=== PATIENT | female | born 1940 | race Caucasian/White ===

== ENCOUNTER 2021-05-20 13:02 | Emergency (ER) | payer SELFPAY ==
[2021-05-20 13:48] VITALS: RESP 18
[2021-05-20 15:01] LABS: Appearance,Urine Clear (Clear); Bilirubin,Urine Negative (Negative); Blood,Urine Negative (Negative); Color,Urine Yellow; Glucose,Urine (UA) Negative (Negative); Ketones,Urine Negative (Negative); Leukocyte Esterase,Urine Moderate (Negative); Mucus,Urine Occasional /hpf; Nitrite,Urine Negative (Negative); PH, Urine 5.5 (5.0-8.0); Protein,Urine Negative (Negative); RBC,Urine 3 /hpf (0-5); Specific Gravity,Urine 1.022 (1.001-1.035); Squamous Epithelial Cell,Urine 1 /hpf (0-4); Urobilinogen,Urine <2.0 mg/dL (<2.0); WBC,Urine 6 /hpf (0-5)
[2021-05-20] MEDS ORDERED: cefTRIAXone IN SWFI 1,000 MG/10 ML SYRINGE IVP STA (15:02)
--- NOTE | 2021-05-20 15:06 | ED ---
Female Urogenital HPI - General Source: patient, RN notes reviewed Mode of arrival: ambulatory Limitations: no limitations <Ranulfo Nguyen - Last Filed: 05/20/21 15:21> <Sangeeta Chatterjee - Last Filed: 05/23/21 23:03> - General Chief complaint: Urogenital Stated complaint: UTI for 2 weeks, rt ankle swelling Time Seen by Provider: 05/20/21 14:10 - History of Present Illness Initial comments: Patient is a 80-year-old female that presents to the emergency department complaining of an ongoing urinary tract infection. She noted been on several antibiotics and still seems to be having symptoms. She notes discomfort. She notes that she recently finished Keflex. Patient denied any other issues or complaints except for right ankle pain. She notes she stepped on a pallet and steps due to of the slats. She denied chest pain shortness of breath headache nausea vomiting diarrhea constipation fever fatigue chills. (Ranulfo Nguyen) - Related Data Previous Rx's Medication Instructions Recorded Ciprofloxacin HCl [Cipro] 500 mg PO Q12HR #14 tablet 05/20/21 Allergies Allergy/AdvReac Type Severity Reaction Status Date / Time egg Allergy Unknown Verified 05/20/21 14:57 nickel Allergy Unknown Verified 05/20/21 14:57 nitrofurantoin Allergy Unknown Verified 05/20/21 14:57 [From Macrobid] Penicillins Allergy Swelling Verified 05/20/21 13:49 Sulfa (Sulfonamide Allergy Unknown Verified 05/20/21 14:57 Antibiotics) sulfamethoxazole Allergy Unknown Verified 05/20/21 13:49 [From Bactrim] trimethoprim [From Bactrim] Allergy Unknown Verified 05/20/21 13:49 Review of Systems ROS Other: All systems not noted in ROS Statement are negative. <Ranulfo Nguyen - Last Filed: 05/20/21 15:21> ROS Other: All systems not noted in ROS Statement are negative. <Sangeeta Chatterjee - Last Filed: 05/23/21 23:03> ROS Statement: Those systems with pertinent positive or pertinent negative responses have been documented in the HPI. Past Medical History Past Medical History: GERD/Reflux, Hypertension, Thyroid Disorder History of Any Multi-Drug Resistant Organisms: None Reported Past Surgical History: Back Surgery, Orthopedic Surgery Past Psychological History: No Psychological Hx Reported Smoking Status: Never smoker Past Alcohol Use History: None Reported Past Drug Use History: None Reported <Ranulfo Nguyen - Last Filed: 05/20/21 15:21> General Exam Limitations: no limitations General appearance: alert, in no apparent distress, obese Head exam: Present: atraumatic, normocephalic, normal inspection Eye exam: Present: normal appearance, PERRL, EOMI. Absent: scleral icterus, conjunctival injection, periorbital swelling ENT exam: Present: normal exam, mucous membranes moist Neck exam: Present: normal inspection Respiratory exam: Present: normal lung sounds bilaterally. Absent: respiratory distress, wheezes, rales, rhonchi, stridor Cardiovascular Exam: Present: regular rate, normal rhythm, normal heart sounds. Absent: systolic murmur, diastolic murmur, rubs, gallop, clicks GI/Abdominal exam: Present: soft, tenderness (mild in the lower Abdomen.), normal bowel sounds. Absent: distended, guarding, rebound, rigid Extremities exam: Present: normal inspection, full ROM, normal capillary refill. Absent: tenderness, pedal edema, joint swelling, calf tenderness Neurological exam: Present: alert, oriented X3 Psychiatric exam: Present: normal affect, normal mood Skin exam: Present: warm, dry, intact, normal color. Absent: rash <Ranulfo Nguyen - Last Filed: 05/20/21 15:21> Course Vital Signs 05/20/21 05/20/21 13:41 16:14 Temperature 98.4 F 98.1 F Pulse Rate 86 76 Respiratory 18 18 Rate Blood Pressure 152/82 150/72 O2 Sat by Pulse 96 97 Oximetry Medical Decision Making - Radiology Data Radiology results: report reviewed, image reviewed <Ranulfo Nguyen - Last Filed: 05/20/21 15:21> <Sangeeta Chatterjee - Last Filed: 05/23/21 23:03> - Medical Decision Making 80-year-old female with urinary tract symptoms and right ankle pain. Urinalysis and x-ray the right ankle ordered. Urinalysis shows 6 white blood cells, 1 g Rocephin ordered. Antibiotics sent to pharmacy. X-ray imaging negative for any acute fracture. Patient is febrile discharge home. Case discussed with Dr. Chatterjee. (Ranulfo Nguyen) I was available for consultation in the emergency department. The history and physical exam were done by the midlevel provider. I was consulted for this patients care. I reviewed the case with the midlevel provider and based on their presentation of the patient, I agree with the assessment, medical decision making and plan of care as documented. Chart was dictated using [employer] dictation software. Attempts were made to correct any dictation errors however some typographical errors may persist. Patient was seen during a national state of emergency due to the Covid-19 pandemic. (Sangeeta Chatterjee) - Lab Data Lab Results 05/20/21 Range/Units 14:21 Urine Color Yellow Urine Appearance Clear (Clear) Urine pH 5.5 (5.0-8.0) Ur Specific [place] 1.022 (1.001-1.035) Urine Protein Negative (Negative) Urine Glucose (UA) Negative (Negative) Urine Ketones Negative (Negative) Urine Blood Negative (Negative) Urine Nitrite Negative (Negative) Urine Bilirubin Negative (Negative) Urine Urobilinogen <2.0 (<2.0) mg/dL Ur Leukocyte Esterase Moderate H (Negative) Urine RBC 3 (0-5) /hpf Urine WBC 6 H (0-5) /hpf Ur Squamous Epith Cells 1 (0-4) /hpf Urine Mucus Occasional H (None) /hpf - Radiology Data X-ray right ankle is negative for any acute fractures or dislocations. (Ranulfo Nguyen) Disposition Is patient prescribed a controlled substance at d/c from ED?: No Time of Disposition: 15:24 <Ranulfo Nguyen - Last Filed: 05/20/21 15:21> <Sangeeta Chatterjee - Last Filed: 05/23/21 23:03> Clinical Impression: Urinary tract infection Disposition: HOME SELF-CARE Condition: Stable Instructions (If sedation given, give patient instructions): Urinary Tract Infe ction in Women (ED) Additional Instructions: Please return to the Emergency Department if symptoms worsen or any other concerns. Take antibiotic as prescribed Follow-up with primary care in 1-2 days. Follow-up with urologist as needed. Prescriptions: Ciprofloxacin HCl [Cipro] 500 mg PO Q12HR #14 tablet Referrals: Nonstaff,Physician [Primary Care Provider] - 1-2 days Brandan Crandall MD [STAFF PHYSICIAN] - 1-2 days
--- NOTE | 2021-05-20 15:09 | XR ---
EXAMINATION TYPE: XR ankle complete RT DATE OF EXAM: 05/20/2021 COMPARISON: NONE HISTORY: Ankle pain TECHNIQUE: 3 views FINDINGS: Ankle mortise is anatomic. I see no fracture nor dislocation. There is previous surgery at the distal first metatarsal. IMPRESSION: Negative right ankle exam. No fracture seen.
[2021-05-20] MEDS ORDERED: cefTRIAXone 1,000 MG VIAL (IM USE) IM STA (15:40)
[2021-05-20 16:14] VITALS: BP 150/72; PULSE 76; TEMP 98.1
== END 2021-05-20 16:14 | disposition home or self-care (01) ==
LOC: EC 13:02
DX: N39.0 Urinary tract infection, site not specified (principal); K21.9 Gastro-esophageal reflux disease without esophagitis; I10 Essential (primary) hypertension; E07.9 Disorder of thyroid, unspecified; Z88.0 Allergy status to penicillin; Z88.2 Allergy status to sulfonamides; Z88.1 Allergy status to other antibiotic agents
CPT/HCPCS: 99283; 96372; 81001; 73610; J0696

== ENCOUNTER 2023-09-12 15:34 | Emergency (ER) | payer MEDICARE ==
--- NOTE | 2023-09-12 15:54 | ED ---
Syncope HPI - General Stated Complaint: Syncope Time Seen by Provider: 09/12/23 15:49 Source: RN notes reviewed, old records reviewed Mode of arrival: EMS Limitations: no limitations - History of Present Illness Initial Comments: This is a 82-year-old female to the ER for evaluation today. Patient comes in for evaluation of a syncopal event. Patient was at her primary care's for normal office visit today when she passed out. Patient passed out while getting her ears flushed. She is without complaint here in the ER no headache chest pain shortness of breath abdominal pain no prior history of syncope. MD Complaint: loss of consciousness, collapsed -: minutes(s) Prodromal Symptoms: lightheaded -: second(s) Witnessed: yes - by bystander Injuries Sustained Associated with Event: None Current Symptoms: none, back to baseline History: previous syncopal episode Context: at rest (Patient was currently getting her ears flushed) Treatments Prior to Arrival: none - Related Data Home Medications Medication Instructions Recorded Confirmed Clotrimazole/Betameth Cream 1 applic TOPICAL BID PRN 09/12/23 09/12/23 [Lotrisone] Levothyroxine Sodium [Synthroid] 50 mcg PO DAILY 09/12/23 09/12/23 Levothyroxine Sodium [Synthroid] 75 mcg PO MOWEFR 09/12/23 09/12/23 Losartan Potassium [Cozaar] 100 mg PO DAILY 09/12/23 09/12/23 Omeprazole [PriLOSEC] 20 mg PO BID 09/12/23 09/12/23 Rosuvastatin [Crestor] 10 mg PO DAILY@1700 09/12/23 09/12/23 Triamcinolone 0.025% Cream 1 applic TOPICAL BID PRN 09/12/23 09/12/23 [Kenalog 0.025% Cream] amLODIPine [Norvasc] 5 mg PO HS 09/12/23 09/12/23 hydroCHLOROthiazide [Hydrodiuril] 12.5 mg PO DAILY 09/12/23 09/12/23 valACYclovir HCL [Valtrex] 500 mg PO DAILY 09/12/23 09/12/23 Allergies Allergy/AdvReac Type Severity Reaction Status Date / Time egg Allergy Unknown Verified 09/12/23 17:17 nickel Allergy Unknown Verified 09/12/23 17:17 nitrofurantoin Allergy Unknown Verified 09/12/23 17:17 [From Macrobid] Penicillins Allergy Swelling Verified 09/12/23 17:17 Sulfa (Sulfonamide Allergy Swelling Verified 09/12/23 17:17 Antibiotics) sulfamethoxazole Allergy Swelling Verified 09/12/23 17:17 [From Bactrim] trimethoprim [From Bactrim] Allergy Swelling Verified 09/12/23 17:17 Review of Systems ROS Statement: Those systems with pertinent positive or pertinent negative responses have been documented in the HPI. ROS Other: All systems not noted in ROS Statement are negative. Past Medical History Past Medical History: GERD/Reflux, Hypertension, Thyroid Disorder History of Any Multi-Drug Resistant Organisms: None Reported Past Surgical History: Back Surgery, Orthopedic Surgery Past Psychological History: No Psychological Hx Reported Smoking Status: Never smoker Past Alcohol Use History: None Reported Past Drug Use History: None Reported General Exam General appearance: alert, anxious, in distress Head exam: Present: atraumatic, normocephalic, normal inspection Eye exam: Present: normal appearance, PERRL, EOMI. Absent: scleral icterus, conjunctival injection, periorbital swelling ENT exam: Present: normal exam, mucous membranes moist Neck exam: Present: normal inspection. Absent: tenderness, meningismus, lymphadenopathy Respiratory exam: Present: normal lung sounds bilaterally. Absent: respiratory distress, wheezes, rales, rhonchi, stridor Cardiovascular Exam: Present: regular rate, normal rhythm, normal heart sounds. Absent: systolic murmur, diastolic murmur, rubs, gallop, clicks GI/Abdominal exam: Present: soft, normal bowel sounds. Absent: distended, tenderness, guarding, rebound, rigid Extremities exam: Present: normal inspection, full ROM, normal capillary refill. Absent: tenderness, pedal edema, joint swelling, calf tenderness Back exam: Present: normal inspection Neurological exam: Present: alert, oriented X3, CN II-XII intact Psychiatric exam: Present: normal affect, normal mood Skin exam: Present: warm, dry, intact, normal color. Absent: rash Course Vital Signs 09/12/23 09/12/23 15:48 18:26 Temperature 98.6 F 98.6 F Pulse Rate 62 71 Respiratory 16 16 Rate Blood Pressure 149/63 151/66 O2 Sat by Pulse 97 96 Oximetry - Reevaluation(s) Reevaluation #1: 09/12/23 18:09 Medical records reviewed Reevaluation #2: 09/12/23 18:09 Patient remains asymptomatic here in the ER Reevaluation #3: 09/12/23 18:09 Patient informed of results questions answered Reevaluation #4: Was pt. sent in by a medical professional or institution (DONG Christopher, ORNAMENT SETTER, urgent care, hospital, or prison...) When possible be specific @ -no Did you speak to anyone other than the patient for history (EMS, parent, family, police, friend...)? What history was obtained from this source @ -no Did you review nursing and triage notes (agree or disagree)? Why? @ -agree Are old charts reviewed (outside hosp., previous admission, EMS record, old EKG, old radiological studies, urgent care reports/EKG's, prison records)? Report findings @ -yes Differential Diagnosis (chest pain, altered mental status, abdominal pain women, abdominal pain men, vaginal bleeding, weakness, fever, dyspnea, syncope, headache, dizziness, GI bleed, back pain, seizure, CVA, palpatations, mental health, musculoskeletal)? @ -prior EKG interpreted by me (3pts min.). @ -yes X-rays interpreted by me (1pt min.). @ -no CT interpreted by me (1pt min.). @ -Yes negative for acute disease U/S interpreted by me (1pt. min.). @ -no What testing was considered but not performed or refused? (CT, X-rays, U/S, labs)? Why? @ -none What meds were considered but not given or refused? Why? @ -none Did you discuss the management of the patient with other professionals ([facility] seo i.e. DONG Christopher, ORNAMENT SETTER, lab, RT, psych nurse, home health care social worker, sander wooden pencils, teacher, president and chief executive officer, immigration case manager)? Give summary @ -no Was smoking cessation discussed for >3mins.? @ -no Was critical care preformed (if so, how long)? @ -no Were there social determinants of health that impacted care today? How? (Homelessness, low income, unemployed, alcoholism, drug addiction, transportation, low edu. Level, literacy, decrease access to med. care, alf, rehab)? @ -none Was there de-escalation of care discussed even if they declined (Discuss DNR or withdrawal of care, Hospice)? DNR status @ -no What co-morbidities impacted this encounter? (DM, HTN, Smoking, COPD, CAD, Cancer, CVA, ARF, Chemo, Hep., AIDS, mental health diagnosis, sleep apnea, morbid obesity)? @ -none Was patient admitted / discharged? Hospital course, mention meds given and route, prescriptions, significant lab abnormalities, going to OR and other pertinent info. @ - 82 female to ER for evaluation patient presents today for evaluation of syncopal event. Patient has no recurrent syncope here in the ER but feels well no complaints and can be discharged home Discharge Undiagnosed new problem with uncertain prognosis? @ -no Drug Therapy requiring intensive monitoring for toxicity (Heparin, Nitro, Insulin, Cardizem)? @ -no Were any procedures done? @ -no Diagnosis/symptom? @ -Syncope Acute, or Chronic, or Acute on Chronic? @ -Acute Uncomplicated (without systemic symptoms) or Complicated (systemic symptoms)? @ -Complicated Side effects of treatment? @ -no Exacerbation, Progression, or Severe Exacerbation? @ -exacerbation Poses a threat to life or bodily function? How? (Chest pain, [place], AK, pneumonia, PE, COPD, DKA, ARF, appy, cholecystitis, CVA, Diverticulitis, Homicidal, Suicidal, threat to staff... and all critical care pts) @ -yes with significant syncopal event Reevaluation #5: Differential Syncope: Valvular disease, hypertrophic cardiomyopathy, pulmonary embolism, tamponade, tachycardia, bradycardia, [place], hypovolemia, hemorrhage, dissection, anemia, intracranial hemorrhage, seizure, hypoglycemia, carbon monoxide poisoning, this is not meant to be an all-inclusive list. EKG Findings - EKG Comments: EKG Findings:: EKG is sinus 66 NE 154 QRS 86 QTc 422 - EKG Results: EKG: interpreted by ERMD Medical Decision Making - Medical Decision Making 82 female to ER for evaluation patient presents today for evaluation of syncopal event. Patient has no recurrent syncope here in the ER but feels well no comp laints and can be discharged home - Lab Data Result diagrams: 09/12/23 15:59 09/12/23 15:59 Lab Results 09/12/23 09/12/23 09/12/23 Range/Units 15:59 15:59 15:59 WBC 3.9 (3.8-10.6) k/uL RBC 4.24 (3.80-5.40) m/uL Hgb 11.4 (11.4-16.0) gm/dL Hct 38.0 (34.0-46.0) % MCV 89.5 (80.0-100.0) fL MCH 27.0 (25.0-35.0) pg MCHC 30.1 L (31.0-37.0) g/dL RDW 15.4 (11.5-15.5) % Plt Count 232 (150-450) k/uL MPV 8.0 Neutrophils % 52 % Lymphocytes % 33 % Monocytes % 9 % Eosinophils % 2 % Basophils % 1 % Neutrophils # 2.0 (1.3-7.7) k/uL Lymphocytes # 1.3 (1.0-4.8) k/uL Monocytes # 0.3 (0-1.0) k/uL Eosinophils # 0.1 (0-0.7) k/uL Basophils # 0.1 (0-0.2) k/uL Hypochromasia Slight PT 10.8 (10.0-12.5) sec INR 1.0 (<1.2) APTT 20.7 L (22.0-30.0) sec D-Dimer 0.98 H (<0.60) mg/L FEU Sodium 139 (137-145) mmol/L Potassium 4.0 (3.5-5.1) mmol/L Chloride 106 (98-107) mmol/L Carbon Dioxide 23 (22-30) mmol/L Anion Gap 10 mmol/L BUN 14 (7-17) mg/dL Creatinine 0.80 (0.52-1.04) mg/dL Est GFR (CKD-EPI)AfAm 81 (>60 ml/min/1.73 sqM) Est GFR (CKD-EPI)NonAf 70 (>60 ml/min/1.73 sqM) Glucose 100 H (74-99) mg/dL Plasma Lactic Acid Boris (0.7-2.0) mmol/L Calcium 9.0 (8.4-10.2) mg/dL Phosphorus 3.4 (2.5-4.5) mg/dL Magnesium 1.6 (1.6-2.3) mg/dL Total Bilirubin 0.5 (0.2-1.3) mg/dL AST 31 (14-36) U/L ALT 17 (4-34) U/L Alkaline Phosphatase 88 (38-126) U/L Troponin I (0.000-0.034) ng/mL NT-Pro-B Natriuret Pep 561 pg/mL Total Protein 6.8 (6.3-8.2) g/dL Albumin 3.6 (3.5-5.0) g/dL 09/12/23 09/12/23 Range/Units 15:59 15:59 WBC (3.8-10.6) k/uL RBC (3.80-5.40) m/uL Hgb (11.4-16.0) gm/dL Hct (34.0-46.0) % MCV (80.0-100.0) fL MCH (25.0-35.0) pg MCHC (31.0-37.0) g/dL RDW (11.5-15.5) % Plt Count (150-450) k/uL MPV Neutrophils % % Lymphocytes % % Monocytes % % Eosinophils % % Basophils % % Neutrophils # (1.3-7.7) k/uL Lymphocytes # (1.0-4.8) k/uL Monocytes # (0-1.0) k/uL Eosinophils # (0-0.7) k/uL Basophils # (0-0.2) k/uL Hypochromasia PT (10.0-12.5) sec INR (<1.2) APTT (22.0-30.0) sec D-Dimer (<0.60) mg/L FEU Sodium (137-145) mmol/L Potassium (3.5-5.1) mmol/L Chloride (98-107) mmol/L Carbon Dioxide (22-30) mmol/L Anion Gap mmol/L BUN (7-17) mg/dL Creatinine (0.52-1.04) mg/dL Est GFR (CKD-EPI)AfAm (>60 ml/min/1.73 sqM) Est GFR (CKD-EPI)NonAf (>60 ml/min/1.73 sqM) Glucose (74-99) mg/dL Plasma Lactic Acid Boris 1.1 (0.7-2.0) mmol/L Calcium (8.4-10.2) mg/dL Phosphorus (2.5-4.5) mg/dL Magnesium (1.6-2.3) mg/dL Total Bilirubin (0.2-1.3) mg/dL AST (14-36) U/L ALT (4-34) U/L Alkaline Phosphatase (38-126) U/L Troponin I <0.012 (0.000-0.034) ng/mL NT-Pro-B Natriuret Pep pg/mL Total Protein (6.3-8.2) g/dL Albumin (3.5-5.0) g/dL - EKG Data -: EKG Interpreted by Me - Radiology Data Radiology results: report reviewed (CTA chest negative for PE), image reviewed Disposition Clinical Impression: Syncope due to orthostatic hypotension, Vasovagal syncope, Dehydration Disposition: HOME SELF-CARE Condition: Fair Instructions (If sedation given, give patient instructions): Syncope (ED) Is patient prescribed a controlled substance at d/c from ED?: No Referrals: sAhvin Malloy DO [Primary Care Provider] - 1-2 days
[2023-09-12] MEDS: SODIUM CHLORIDE 0.9% 1,000 ML IV STA (16:03)
[2023-09-12 16:13] VITALS: RESP 16; TEMP 98.6
[2023-09-12 16:13] LABS: Basophils # (A) 0.1 k/uL (0-0.2); Basophils % (A) 1 %; Eosinophils # (A) 0.1 k/uL (0-0.7); Eosinophils % (A) 2 %; HGB 11.4 gm/dL (11.4-16.0); Hypochromasia Slight; Lymphocytes # (A) 1.3 k/uL (1.0-4.8); Lymphocytes % (A) 33 %; MCHC 30.1 g/dL (31.0-37.0); MCV 89.5 fL (80.0-100.0); Monocytes # (A) 0.3 k/uL (0-1.0); Monocytes % (A) 9 %; Neutrophils % (A) 52 %; Platelet Count 232 k/uL (150-450); RBC 4.24 m/uL (3.80-5.40); RDW 15.4 % (11.5-15.5); WBC 3.9 k/uL (3.8-10.6)
[2023-09-12 16:27] LABS: ALT 17 U/L (4-34); AST 31 U/L (14-36); African American GFR (CKD) 81 (>60 ml/min/1.73 sqM); Albumin 3.6 g/dL (3.5-5.0); Alkaline Phosphatase 88 U/L (38-126); Anion Gap 10 mmol/L; Blood Urea Nitrogen 14 mg/dL (7-17); Carbon Dioxide 23 mmol/L (22-30); Chloride 106 mmol/L (98-107); Glucose 100 mg/dL (74-99); Magnesium 1.6 mg/dL (1.6-2.3); Non-African American GFR(CKD) 70 (>60 ml/min/1.73 sqM); Phosphorus 3.4 mg/dL (2.5-4.5); Sodium 139 mmol/L (137-145); Total Bilirubin 0.5 mg/dL (0.2-1.3); Total Protein 6.8 g/dL (6.3-8.2)
[2023-09-12 16:35] LABS: NT-Pro-B-Type Natriuretic Pept 561 pg/mL
[2023-09-12 16:38] LABS: Prothrombin Time 10.8 sec (10.0-12.5)
[2023-09-12 16:49] LABS: Partial Thromboplastin Time 20.7 sec (22.0-30.0)
--- NOTE | 2023-09-12 17:39 | CT ---
EXAMINATION TYPE: CT angio chest DATE OF EXAM: 09/12/2023 5:28 PM COMPARISON: None HISTORY: syncope, vertigo, elevated d-dimer CT DLP: 361.7 mGycm Automated exposure control for dose reduction was used. CONTRAST: CTA scan of the thorax is performed with IV Contrast, patient injected with 100ml mL of Isovue 370, p ulmonary embolism protocol. 3-D postprocessing was performed.. FINDINGS: LUNGS: The lungs are grossly clear, there is no concerning parenchymal mass or nodule identified. T here is no pleural effusion or pneumothorax seen. The tracheobronchial tree is patent. MEDIASTINUM: There is satisfactory enhancement of the pulmonary artery and its branches, there is no CT evidence for pulmonary embolism. There are no greater than 1 cm hilar or mediastinal lymph nodes. No pericardial effusion is seen. Limited scanning the upper abdomen reveals tiny gallstones. IMPRESSION: 1. NO EVIDENCE OF PULMONARY EMBOLISM. 2. NO ACUTE CARDIOPULMONARY DISEASE. 3. MILD CHOLELITHIASIS.
[2023-09-12 18:49] VITALS: BP 151/66; PULSE 71
== END 2023-09-12 18:26 | disposition home or self-care (01) ==
LOC: EC 15:34
DX: E86.0 Dehydration (principal); I95.1 Orthostatic hypotension; Z91.012 Allergy to eggs; Z88.1 Allergy status to other antibiotic agents; Z88.2 Allergy status to sulfonamides; Z88.8 Allergy status to other drugs, medicaments and biological substances
CPT/HCPCS: 36415; 93005; 85379; 83880; 80053; 83605; 83735; 84100; 84484; 85025; 85610; 85730; 71275; 99285; 96360; 96361; Q9967

== ENCOUNTER 2024-05-24 11:55 | Emergency (ER) | payer MEDICARE ==
--- NOTE | 2024-05-24 12:42 | ED ---
General Adult HPI - General Source: patient, RN notes reviewed Mode of arrival: ambulatory Limitations: no limitations <Valentino Vásquez - Last Filed: 05/24/24 12:40> <Hira Saldivar - Last Filed: 05/24/24 15:20> - General Chief complaint: Abdominal Pain Stated complaint: WEAK/HEAD Time Seen by Provider: 05/24/24 12:14 - History of Present Illness Initial comments: Quick note 83-year-old female presents emergency department with multiple complaints. She states generalized has not felt well she did increasing chest congestion, abdominal pain, nausea weakness states that she has not seen anybody for these complaints as she did not have transportation. Patient denies any reports of fever no urinary symptoms. She states she just generalized overall weak and she is getting slowly worse. (Valentino Vásquez) This is an 83-year-old female who presents to the emergency department who initi ally states everything bothers her. Patient was instructed to try to focus in on the worst symptoms and she told me those symptoms are some abdominal pain has been ongoing for 2 months. Patient also complained of generalized weakness which she states is the bigger of the 2 problems. Patient denies any fever chills or cough. Patient denies any nausea vomiting or diarrhea. Patient denies any dysuria hematuria urinary frequency. Patient has any injury or trauma. Patient has any back pain. (Hira Saldivar) - Related Data Home Medications Medication Instructions Recorded Confirmed Clotrimazole/Betameth Cream 1 applic TOPICAL BID PRN 09/12/23 09/12/23 [Lotrisone] Levothyroxine Sodium [Synthroid] 50 mcg PO DAILY 09/12/23 09/12/23 Levothyroxine Sodium [Synthroid] 75 mcg PO MOWEFR 09/12/23 09/12/23 Losartan Potassium [Cozaar] 100 mg PO DAILY 09/12/23 09/12/23 Omeprazole [PriLOSEC] 20 mg PO BID 09/12/23 09/12/23 Rosuvastatin [Crestor] 10 mg PO DAILY@1700 09/12/23 09/12/23 Triamcinolone 0.025% Cream 1 applic TOPICAL BID PRN 09/12/23 09/12/23 [Kenalog 0.025% Cream] amLODIPine [Norvasc] 5 mg PO HS 09/12/23 09/12/23 hydroCHLOROthiazide [Hydrodiuril] 12.5 mg PO DAILY 09/12/23 09/12/23 valACYclovir HCL [Valtrex] 500 mg PO DAILY 09/12/23 09/12/23 Allergies Allergy/AdvReac Type Severity Reaction Status Date / Time egg Allergy Unknown Verified 05/24/24 12:34 nickel Allergy Unknown Verified 05/24/24 12:34 nitrofurantoin Allergy Unknown Verified 05/24/24 12:34 [From Macrobid] Penicillins Allergy Swelling Verified 05/24/24 12:34 Sulfa (Sulfonamide Allergy Swelling Verified 05/24/24 12:34 Antibiotics) sulfamethoxazole Allergy Swelling Verified 05/24/24 12:34 [From Bactrim] trimethoprim [From Bactrim] Allergy Swelling Verified 05/24/24 12:34 Review of Systems ROS Other: All systems not noted in ROS Statement are negative. <Valentino Vásquez - Last Filed: 05/24/24 12:40> ROS Other: All systems not noted in ROS Statement are negative. <Hira Saldivar - Last Filed: 05/24/24 15:20> ROS Statement: Those systems with pertinent positive or pertinent negative responses have been documented in the HPI. Past Medical History Past Medical History: GERD/Reflux, Hypertension, Thyroid Disorder History of Any Multi-Drug Resistant Organisms: None Reported Past Surgical History: Back Surgery, Orthopedic Surgery Past Psychological History: No Psychological Hx Reported Smoking Status: Never smoker Past Alcohol Use History: None Reported Past Drug Use History: None Reported <Valentino Vásquez - Last Filed: 05/24/24 12:40> General Exam Limitations: no limitations <Valentino Vásquez - Last Filed: 05/24/24 12:40> <Hira Saldivar - Last Filed: 05/24/24 15:20> - General Exam Comments Initial Comments: Visual Physical Exam Vital signs reviewed General: Well-appearing, nontoxic, no acute distress. Head: Normocephalic, atraumatic Eyes: PERRLA, EOMI ENT: Airway patent Chest: Nonlabored breathing Skin: No visual rash, normal skin tone Neuro: Alert and oriented 3 Musculoskeletal: No gross abnormalities (Valentino Vásquez) GENERAL: Patient is well-developed and well-nourished. Patient is nontoxic and well- hydrated and is in mild distress. ENT: Neck is soft and supple. No significant lymphadenopathy is noted. Oropharynx is clear. Moist mucous membranes. Neck has full range of motion without eliciting any pain. EYES: The sclera were anicteric and conjunctiva were pink and moist. Extraocular movements were intact and pupils were equal round and reactive to light. Eyelids were unremarkable. PULMONARY: Unlabored respirations. Good breath sounds bilaterally. No audible rales rhonchi or wheezing was noted. CARDIOVASCULAR: There is a regular rate and rhythm without any murmurs gallops or rubs. ABDOMEN: Soft and nontender with normal bowel sounds. I could not find any area of tenderness in the patient's abdomen SKIN: Skin is clear with no lesions or rashes and otherwise unremarkable. NEUROLOGIC: Patient is alert and oriented x3. Cranial nerves II through XII are grossly intact. Motor and sensory are also intact. Normal speech, volume and content. Symmetrical smile. MUSCULOSKELETAL: Normal extremities with adequate strength and full range of motion. LYMPHATICS: No significant lymphadenopathy is noted PSYCHIATRIC: Normal psychiatric evaluation. (Hira Saldivar) Course Vital Signs 05/24/24 12:30 Pulse Rate 88 Respiratory 18 Rate Blood Pressure 158/78 O2 Sat by Pulse 97 Oximetry Medical Decision Making <Valentino Vásquez - Last Filed: 05/24/24 12:40> - Lab Data Result diagrams: 05/24/24 13:28 05/24/24 13:28 <Hira Saldivar - Last Filed: 05/24/24 15:20> - Medical Decision Making I completed the quick note portion of this chart signed Valentino Vásquez PA-C (Valentino Vásquez) EKG is interpreted by myself. EKG shows sinus rhythm at 82 bpm IN 145 QRS is 100 QT interval 395 QTc is 434. Patient's EKG shows no ST segment elevation or depression Was pt. sent in by a medical professional or institution (DONG Christopher, EXTRACT OPERATOR, urgent care, hospital, or half-way...) When possible be specific @ -No Did you speak to anyone other than the patient for history (EMS, parent, family, police, friend...)? What history was obtained from this source @ -No Did you review nursing and triage notes (agree or disagree)? Why? @ -I reviewed and agree with nursing and triage notes Were old charts reviewed (outside hosp., previous admission, EMS record, old EKG, old radiological studies, urgent care reports/EKG's, half-way records)? Report findings @ -No old charts were reviewed Differential Diagnosis? @ -Differential Weakness: Hypoglycemia, shock, sepsis, hyponatremia, anemia, infection, OR, ETOH, adverse medicine reaction, overdose, stroke, this is not meant to be an all-inclusive list. EKG interpreted by me (3pts min.). @ -As above X-rays interpreted by me (1pt min.). @ -X-ray of the chest shows no acute normality. CT interpreted by me (1pt min.). @ -None done U/S interpreted by me (1pt. min.). @ -None done What testing was considered but not performed or refused? (CT, X-rays, U/S, labs)? Why? @ -None What meds were considered but not given or refused? Why? @ -None Did you discuss the management of the patient with other professionals (professionals i.e. , PA, EXTRACT OPERATOR, lab, RT, psych nurse, social organization professor, lehr tender, teacher, chief business development officer, welfare case worker)? Give summary @ -No Was smoking cessation discussed for >3mins.? @ -No Was critical care preformed (if so, how long)? @ -No Were there social determinants of health that impacted care today? How? (Homelessness, low income, unemployed, alcoholism, drug addiction, transportation, low edu. Level, literacy, decrease access to med. care, fdc, rehab)? @ -No Was there de-escalation of care discussed even if they declined (Discuss DNR or withdrawal of care, Hospice)? DNR status @ -No What co-morbidities impacted this encounter? (DM, HTN, Smoking, COPD, CAD, Cancer, CVA, ARF, Chemo, Hep., AIDS, mental health diagnosis, sleep apnea, morbid obesity)? @ -None Was patient admitted / discharged? Hospital course, mention meds given and route, prescriptions, significant lab abnormalities, going to OR and other pertinent info. @ -Patient's lab work showed no acute normality. Urine showed no infection. Chest x-ray showed no abnormality. Patient was sleeping throughout most of her ED course. When I went back to reevaluate if she wanted me to look in your ears I did not see any signs of obvious infection. Patient is able to eat and drink and according to the son she is increasing that lately. Undiagnosed new problem with uncertain prognosis? @ -No Drug Therapy requiring intensive monitoring for toxicity (Heparin, Nitro, Insulin, Cardizem)? @ -No Were any procedures done? @ -No Diagnosis/symptom? @ -Generalized weakness Acute, or Chronic, or Acute on Chronic? @ -Acute Uncomplicated (without systemic symptoms) or Complicated (systemic symptoms)? @ -Uncomplicated Side effects of treatment? @ -No Exacerbation, Progression, or Severe Exacerbation? @ -No Poses a threat to life or bodily function? How? (Chest pain, USA, OR, pneumonia, PE, COPD, DKA, ARF, appy, cholecystitis, CVA, Diverticulitis, Homicidal, Suicidal, threat to staff... and all critical care pts) @ -No (Hira Saldivar) - Lab Data Lab Results 05/24/24 05/24/24 05/24/24 Range/Units 13:28 13:28 13:28 WBC 5.1 (3.8-10.6) k/uL RBC 4.53 (3.80-5.40) m/uL Hgb 12.9 (11.4-16.0) gm/dL Hct 40.8 (34.0-46.0) % MCV 89.9 (80.0-100.0) fL MCH 28.5 (25.0-35.0) pg MCHC 31.7 (31.0-37.0) g/dL RDW 16.3 H (11.5-15.5) % Plt Count 375 (150-450) k/uL MPV 7.8 Neutrophils % 71 % Lymphocytes % 17 % Monocytes % 6 % Eosinophils % 4 % Basophils % 1 % Neutrophils # 3.6 (1.3-7.7) k/uL Lymphocytes # 0.9 L (1.0-4.8) k/uL Monocytes # 0.3 (0-1.0) k/uL Eosinophils # 0.2 (0-0.7) k/uL Basophils # 0.0 (0-0.2) k/uL Hypochromasia Slight Anisocytosis Slight Sodium 140 (137-145) mmol/L Potassium 4.0 (3.5-5.1) mmol/L Chloride 105 (98-107) mmol/L Carbon Dioxide 25 (22-30) mmol/L Anion Gap 10 mmol/L BUN 6 L (7-17) mg/dL Creatinine 0.66 (0.52-1.04) mg/dL Est GFR (CKD-EPI)AfAm >90 (>60 ml/min/1.73 sqM) Est GFR (CKD-EPI)NonAf 83 (>60 ml/min/1.73 sqM) Glucose 116 H (74-99) mg/dL Plasma Lactic Acid Boris 1.3 (0.7-2.0) mmol/L Calcium 9.6 (8.4-10.2) mg/dL Total Bilirubin 0.6 (0.2-1.3) mg/dL AST 34 (14-36) U/L ALT 17 (4-34) U/L Alkaline Phosphatase 93 (38-126) U/L Total Protein 7.4 (6.3-8.2) g/dL Albumin 3.9 (3.5-5.0) g/dL Lipase 42 (23-300) U/L Urine Color Urine Appearance (Clear) Urine pH (5.0-8.0) Ur Specific [place] (1.001-1.035) Urine Protein (Negative) Urine Glucose (UA) (Negative) Urine Ketones (Negative) Urine Blood (Negative) Urine Nitrite (Negative) Urine Bilirubin (Negative) Urine Urobilinogen (<2.0) mg/dL Ur Leukocyte Esterase (Negative) Urine WBC (0-5) /hpf Ur Squamous Epith Cells (0-4) /hpf Urine Mucus (None) /hpf Influenza Type A (PCR) (Not Detectd) Influenza Type B (PCR) (Not Detectd) RSV (PCR) (Not Detectd) SARS-CoV-2 (PCR) (Not Detectd) 05/24/24 05/24/24 Range/Units 13:28 14:30 WBC (3.8-10.6) k/uL RBC (3.80-5.40) m/uL Hgb (11.4-16.0) gm/dL Hct (34.0-46.0) % MCV (80.0-100.0) fL MCH (25.0-35.0) pg MCHC (31.0-37.0) g/dL RDW (11.5-15.5) % Plt Count (150-450) k/uL MPV Neutrophils % % Lymphocytes % % Monocytes % % Eosinophils % % Basophils % % Neutrophils # (1.3-7.7) k/uL Lymphocytes # (1.0-4.8) k/uL Monocytes # (0-1.0) k/uL Eosinophils # (0-0.7) k/uL Basophils # (0-0.2) k/uL Hypochromasia Anisocytosis Sodium (137-145) mmol/L Potassium (3.5-5.1) mmol/L Chloride (98-107) mmol/L Carbon Dioxide (22-30) mmol/L Anion Gap mmol/L BUN (7-17) mg/dL Creatinine (0.52-1.04) mg/dL Est GFR (CKD-EPI)AfAm (>60 ml/min/1.73 sqM) Est GFR (CKD-EPI)NonAf (>60 ml/min/1.73 sqM) Glucose (74-99) mg/dL Plasma Lactic Acid Boris (0.7-2.0) mmol/L Calcium (8.4-10.2) mg/dL Total Bilirubin (0.2-1.3) mg/dL AST (14-36) U/L ALT (4-34) U/L Alkaline Phosphatase (38-126) U/L Total Protein (6.3-8.2) g/dL Albumin (3.5-5.0) g/dL Lipase (23-300) U/L Urine Color Light Yellow Urine Appearance Clear (Clear) Urine pH 6.5 (5.0-8.0) Ur Specific [place] 1.011 (1.001-1.035) Urine Protein Negative (Negative) Urine Glucose (UA) Negative (Negative) Urine Ketones Negative (Negative) Urine Blood Negative (Negative) Urine Nitrite Negative (Negative) Urine Bilirubin Negative (Negative) Urine Urobilinogen <2.0 (<2.0) mg/dL Ur Leukocyte Esterase Small H (Negative) Urine WBC 6 H (0-5) /hpf Ur Squamous Epith Cells 2 (0-4) /hpf Urine Mucus Few H (None) /hpf Influenza Type A (PCR) Not Detected (Not Detectd) Influenza Type B (PCR) Not Detected (Not Detectd) RSV (PCR) Not Detected (Not Detectd) SARS-CoV-2 (PCR) Not Detected (Not Detectd) Disposition <Valentino Vásquez - Last Filed: 05/24/24 12:40> Is patient prescribed a controlled substance at d/c from ED?: No Time of Disposition: 15:20 <Hira Saldivar - Last Filed: 05/24/24 15:20> Clinical Impression: Generalized weakness Disposition: HOME SELF-CARE Condition: Good Instructions (If sedation given, give patient instructions): Weakness (ED) Referrals: Nonstaff,Physician [Primary Care Provider] - 1-2 days
[2024-05-24 13:46] LABS: Anisocytosis Slight; Basophils % (A) 1 %; Eosinophils # (A) 0.2 k/uL (0-0.7); Eosinophils % (A) 4 %; HCT 40.8 % (34.0-46.0); HGB 12.9 gm/dL (11.4-16.0); Hypochromasia Slight; Lymphocytes # (A) 0.9 k/uL (1.0-4.8); Lymphocytes % (A) 17 %; MCH 28.5 pg (25.0-35.0); MCHC 31.7 g/dL (31.0-37.0); MCV 89.9 fL (80.0-100.0); Mean Platelet Volume 7.8; Monocytes # (A) 0.3 k/uL (0-1.0); Monocytes % (A) 6 %; Neutrophils # (A) 3.6 k/uL (1.3-7.7); Neutrophils % (A) 71 %; Platelet Count 375 k/uL (150-450); RBC 4.53 m/uL (3.80-5.40); RDW 16.3 % (11.5-15.5); WBC 5.1 k/uL (3.8-10.6)
[2024-05-24 14:10] LABS: ALT 17 U/L (4-34); African American GFR (CKD) >90 (>60 ml/min/1.73 sqM); Albumin 3.9 g/dL (3.5-5.0); Anion Gap 10 mmol/L; Blood Urea Nitrogen 6 mg/dL (7-17); Calcium 9.6 mg/dL (8.4-10.2); Carbon Dioxide 25 mmol/L (22-30); Chloride 105 mmol/L (98-107); Glucose 116 mg/dL (74-99); Lipase 42 U/L (23-300); Non-African American GFR(CKD) 83 (>60 ml/min/1.73 sqM); Sodium 140 mmol/L (137-145); Total Bilirubin 0.6 mg/dL (0.2-1.3); Total Protein 7.4 g/dL (6.3-8.2)
[2024-05-24 14:14] LABS: AST 34 U/L (14-36); Alkaline Phosphatase 93 U/L (38-126)
--- NOTE | 2024-05-24 14:39 | XR ---
EXAMINATION TYPE: XR chest 2V DATE OF EXAM: 05/24/2024 2:23 PM COMPARISON: CT chest study dated 09/12/2043. CLINICAL INDICATION: Female, 83 years old with history of weakness; [facility] TECHNIQUE: XR chest 2V Frontal and lateral views of the chest. FINDINGS: Lungs/Pleura: There is no evidence of pleural effusion, focal consolidation, or pneumothorax. Pulmonary vascularity: Unremarkable. Heart/mediastinum: Cardiomediastinal silhouette is unremarkable. Musculoskeletal: No acute osseous pathology. Other findings: None IMPRESSION: No acute cardiopulmonary disease/process. [facility], , 05/24/2024 2:37 PM
[2024-05-24 15:04] LABS: Appearance,Urine Clear (Clear); Bilirubin,Urine Negative (Negative); Blood,Urine Negative (Negative); Color,Urine Light Yellow; Glucose,Urine (UA) Negative (Negative); Ketones,Urine Negative (Negative); Leukocyte Esterase,Urine Small (Negative); Mucus,Urine Few /hpf; Nitrite,Urine Negative (Negative); PH, Urine 6.5 (5.0-8.0); Protein,Urine Negative (Negative); Specific Gravity,Urine 1.011 (1.001-1.035); Squamous Epithelial Cell,Urine 2 /hpf (0-4); Urobilinogen,Urine <2.0 mg/dL (<2.0); WBC,Urine 6 /hpf (0-5)
[2024-05-24 15:35] VITALS: BP 169/75; PULSE 86; RESP 16
== END 2024-05-24 15:34 | disposition home or self-care (01) ==
LOC: EC 11:55
DX: R53.1 Weakness (principal); Z88.0 Allergy status to penicillin; Z88.1 Allergy status to other antibiotic agents; Z88.2 Allergy status to sulfonamides; Z91.012 Allergy to eggs; Z91.048 Other nonmedicinal substance allergy status; Z88.8 Allergy status to other drugs, medicaments and biological substances
CPT/HCPCS: 36415; 71046; 80053; 81001; 83605; 83690; 85025; 87636; 93005; 99284

== ENCOUNTER → 2024-11-03 | Outpatient (CLI) | payer MEDICARE ==
--- NOTE | 2024-11-03 13:09 | US ---
EXAMINATION TYPE: US abdomen complete DATE OF EXAM: 11/03/2024 COMPARISON: NONE CLINICAL INDICATION: Female, 83 years old with history of K82.8 OTH SPEC DISEASE OF GALLB; pain TECHNIQUE: Grayscale and color Doppler imaging of the abdomen was performed. FINDINGS: EXAM MEASUREMENTS: Liver Length: 12 cm Gallbladder Wall: .2 cm CBD: .4 cm, color Doppler imaging was utilized to isolate the common bile duct for measurement. Spleen: 8.3 cm Right Kidney: 8.3 x 3.8 x 2.9 cm Left Kidney: 9.5 x 3.6 x 3.3 cm BOILER ROOM OPERATOR NOTES: Pancreas: wnl Liver: wnl, no dilated ducts, masses or cysts. Gallbladder: wnl Evidence for sonographic Loza's sign: CBD: wnl Spleen: wnl Right Kidney: wnl, No hydronephrosis, calculi or masses seen Left Kidney: wnl, No hydronephrosis, calculi or masses seen Upper IVC: wnl Abd Aorta: wnl IMPRESSION: No acute ultrasound abnormality of the abdomen [facility], , 11/03/2024 1:07 PM
--- NOTE | 2024-11-04 10:43 | NM ---
EXAMINATION TYPE: NM hepatobiliary w EF DATE OF EXAM: 11/03/2024 COMPARISON: NONE INDICATION: Pain, disease of the gallbladder TECHNIQUE: After the intravenous administration of 5.27 mCi Tc 99m Mebrofenin hepatobiliary scintigra phy is performed. Images were obtained immediately post injection. FINDINGS: There is prompt uptake and excretion of radiotracer by the liver. Extrahepatic ducts are identified at 18 minutes. The gallbladder is visualized within 18 minutes. Small bowel activity is noted within 36 minutes. At one hour 8 ounces of oral ensure plus is given to mimic CCK and gallbladder ejection fraction is c alculated at 93 %, which is markedly elevated. (Normal >35% and <80%.). IMPRESSION: 1. Biliary hyperkinesia. [facility], , 11/04/2024 10:41 AM
== END | disposition home or self-care (01) ==
LOC: RADUSWWP 12:15
PROVIDERS: ATTEND Family Medicine
DX: K82.8 Other specified diseases of gallbladder (principal)
CPT/HCPCS: 76700; 78226; A9537